=== PATIENT | female | born 1950 | race Caucasian/White ===

== ENCOUNTER → 2016-09-24 | Outpatient (CLI) | payer OTHER ==
[2016-08-26 22:05] VITALS: BP 142/55
[~2016-09-24] MED LIST: CALC300T5 PO; CEFP200T PO; CHOL500016 PO; CYAN10002 IJ; FENT1PAT15 TD; FENT1PAT17 TP; OSEL75CA PO; OXYC-323 PO; OXYC20TA34 PO
--- NOTE | 2016-09-24 13:35 | RAD ---
EXAM: Abdomen and pelvis CT without contrast. HISTORY: Flank pain. TECHNIQUE: Computed tomographic images of the abdomen and pelvis were obtained without contrast. One or more of the following individualized dose reduction techniques were utilized for this examination: 1. Automated exposure control. 2. Adjustment of the mA and/or kV according to patient size. 3. Use of iterative reconstruction technique. COMPARISON: 08/19/2012. FINDINGS: Evaluation of the lower thorax demonstrates groundglass opacities within the right lower lobe and inferior right middle lobe. There is a calcified granuloma within the left lower lobe. No hepatic lesion is seen. The gallbladder is unremarkable. There is a tiny proximal duodenal diverticulum. The spleen is upper normal in size. The adrenal glands are unremarkable. There is no evidence of nephrolithiasis or obstructive uropathy. There is faint increased density within the upper pole of the right kidney, not within limits to suggest nephrocalcinosis. Evaluation of the distal right ureter is limited due to artifact from a right hip arthroplasty. There are several bilateral renal cysts, the largest of which measures 3.8 cm within the right lower pole. The appendix is normal in appearance. There is moderate colonic stool. There is mild mucosal thickening involving loops of small bowel within the left upper and mid abdomen, likely due to peristalsis. No pathologically enlarged lymph node is seen. There is aortic and aortic branch vessel atherosclerosis. The uterus is surgically absent. There is no suspicious osseous lesion. There is a chronic superior endplate depression with Schmorl's node and T12. IMPRESSION: 1. No evidence of obstructive uropathy or nephrolithiasis. 2. Groundglass opacities within the right lower lobe and inferior right middle lobe, possibly due to atelectasis or pneumonia/pneumonitis. 3. Multiple renal cysts.
== END | disposition home or self-care (01) ==
LOC: CT 12:23
PROVIDERS: ATTEND Nurse Practitioner Family
DX: R10.31 Right lower quadrant pain (principal); R31.9 Hematuria, unspecified; N28.1 Cyst of kidney, acquired
CPT/HCPCS: 74176

== ENCOUNTER → 2016-10-14 | Outpatient (CLI) | payer OTHER ==
[2016-08-26 22:05] VITALS: BP 142/55
[2016-10-14 11:21] LABS: BASO % 0 % (0-3); EOS % 0 % (0-3); HEMATOCRIT 43.9 % (36.0-47.0); HEMOGLOBIN 14.7 g/dL (12.0-15.5); LYMPH # 1.3 x10^3/uL (1.0-4.8); LYMPH % 22 % (24-48); MEAN CORPUSCULAR HEMOGLOBIN 31 pg (25-35); MEAN CORPUSCULAR HGB CONC 33 g/dL (31-37); MEAN CORPUSCULAR VOLUME 94 fL (79-100); MONO # 0.5 x10^3/uL (0.0-1.1); MONO % 8 % (0-9); NEUT % 70 % (31-73); PLATELET COUNT 164 x10^3/uL (140-400); RED CELL DISTRIBUTION WIDTH 14.3 % (11.5-14.5); WHITE BLOOD COUNT 5.7 x10^3/uL (4.0-11.0)
[2016-10-14 11:26] LABS: CALCIUM 8.5 mg/dL (8.5-10.1); GFR 55.3; POTASSIUM 3.8 mmol/L (3.5-5.1)
[2016-10-14 11:37] LABS: BILIRUBIN,URINE NEG (NEG); CLARITY,URINE CLEAR; COLOR,URINE YELLOW; GLUCOSE,URINE NEG (NEG)
[2016-10-14 11:38] LABS: BACTERIA,URINE 0 /HPF (0-FEW); HYALINE CASTS, URINE OCC /HPF; NITRITE,URINE NEG (NEG); RBC,URINE RARE /HPF (0-2); SQUAMOUS EPITHELIAL CELL,UR FEW /LPF; UROBILINOGEN,URINE 0.2 mg/dL (0.2 mg/dL); WBC,URINE RARE /HPF (0-4)
== END | disposition home or self-care (01) ==
LOC: LAB 09:48
PROVIDERS: ATTEND Urology
DX: R10.9 Unspecified abdominal pain (principal)
CPT/HCPCS: 36415; 80048; 81001; 85027

== ENCOUNTER → 2017-05-27 | Day surgery (SDC) | payer OTHER ==
[2016-08-26 22:05] VITALS: BP 142/55
[~2017-05-27] MED LIST changes: +IV RINGERS SOLUTION,LACTATED 1,000 ML IV ONE; +LIDOCAINE 2% PF Vial for OR 5 ML VIAL. ONE; +PROPOFOL 40 ML IV ONE
== END | disposition home or self-care (01) ==
LOC: SURG 09:50
PROVIDERS: ATTEND Internal Medicine Gastroenterology
DX: Z09 Encounter for follow-up examination after completed treatment for conditions other than malignant neoplasm (principal); Z87.19 Personal history of other diseases of the digestive system; D12.0 Benign neoplasm of cecum; Z87.442 Personal history of urinary calculi; Z87.01 Personal history of pneumonia (recurrent); Z90.710 Acquired absence of both cervix and uterus; Z90.49 Acquired absence of other specified parts of digestive tract; Z88.6 Allergy status to analgesic agent; Z88.2 Allergy status to sulfonamides
CPT/HCPCS: 45385; J2704; J7120; 45380; J2001

== ENCOUNTER 2017-11-30 23:55 | Emergency (ER) | payer OTHER ==
[~2017-11-30] VITALS: Ht 165.1 cm; Wt 60.8 kg
[~2017-11-30 23:55] MED LIST changes: -IV RINGERS SOLUTION,LACTATED 1,000 ML IV ONE; -LIDOCAINE 2% PF Vial for OR 5 ML VIAL. ONE; -PROPOFOL 40 ML IV ONE
--- NOTE | 2017-12-01 00:05 | ED.ADGEN ---
Past History Past Medical History: Hypertension Past Surgical History: Other Alcohol Use: None Drug Use: None Adult General Chief Complaint Chief Complaint ".. I ve got a really sore Lt. ear... I took some my Amoxicillin... for my dental work... it helped a couple weeks ago.. but the pain is really bad..." HPI HPI Patient is a 67 year old female who presents with Lt ear ache. Pt. took some of here Amoxicillin for dental procedures. Patient denies any trauma or exposure to water and left ear. Patient does have external otitis as well as fluid behind the TM and TM injection. Patient denies any immunosuppression. No history of travel or specific ill contacts. Patient does report she develops yeast after taking amoxicillin. Pt. follows with Dr. Ferguson Review of Systems Review of Systems Constitutional: Denies fever or chills [] Eyes: Denies change in visual acuity, redness, or eye pain [] HENT: Denies nasal congestion or sore throat []complaints of left ear pain Respiratory: Denies cough or shortness of breath [] Cardiovascular: No additional information not addressed in HPI [] GI: Denies abdominal pain, nausea, vomiting, bloody stools or diarrhea [] : Denies dysuria or hematuria [] Musculoskeletal: Denies back pain or joint pain [] Integument: Denies rash or skin lesions [] Neurologic: Denies headache, focal weakness or sensory changes [] Endocrine: Denies polyuria or polydipsia [] All other systems were reviewed and found to be within normal limits, except as documented in this note. Family History Family History Noncontributory Current Medications Current Medications Current Medications Medications (Trade) Dose Ordered Sig/Be Start Time Stop Time Status Last Admin Dose Admin Acetaminophen (Tylenol) 500 mg STK-MED ONCE 12/01/17 01:11 12/01/17 01:31 DC Cephalexin HCl (Keflex) 250 mg STK-MED ONCE 12/01/17 01:10 12/01/17 01:31 DC Neomycin/ Polymyxin/ Hydrocortisone (Cortisporin Otic) 100 drop STK-MED ONCE 12/01/17 01:11 12/01/17 01:31 DC See nursing for home meds Allergies Allergies Allergies Coded Allergies Type Severity Reaction Last Updated Verified No Known Drug Allergies 02/28/14 No Physical Exam Physical Exam Constitutional: Moderately acute distress, non-toxic appearance. [] HENT: Normocephalic, atraumatic, right external ears normal, oropharynx moist, no oral exudates, nose normal. []Left ear canal injected as well as the TM Eyes: PERRLA, EOMI, conjunctiva normal, no discharge. [] Neck: Normal range of motion, no tenderness, supple, no stridor. [] Cardiovascular:Heart rate regular rhythm, no murmur [] Lungs & Thorax: Bilateral breath sounds equal at apexes on auscultation [] Abdomen: Bowel sounds normal, soft, no tenderness, no masses, no pulsatile masses. [] Skin: Warm, dry, no erythema, no rash. [] Back: No tenderness, no CVA tenderness. [] Extremities: No tenderness, no cyanosis, no clubbing, ROM intact, no edema. [] Right hip, Neurologic: Alert and oriented X 3, normal motor function, normal sensory function, no focal deficits noted. [] Psychologic: Affect anxious, judgement normal, mood normal. [] EKG EKG [] Radiology/Procedures Radiology/Procedures [] Course & Med Decision Making Course & Med Decision Making Pertinent Labs and Imaging studies reviewed. (See chart for details). Take Keflex 500 three times a day x 7 days. Use Cortisporin ear qtts in Lt ear 4 x day. Follow up with Dr. Ferguson. Diflucan 100 x 3 after complete the antibiotic. Tylenol and Ibuprofen for pain. Return if any concerns. Avoid water in Lt ear. [] Final Impression Final Impression 1. Otitis Lt. []Media and External Dragon Disclaimer Dragon Disclaimer This electronic medical record was generated, in whole or in part, using a voice recognition dictation system. KAVON YUSUF MD Dec 01, 2017 00:05
[2017-12-01 00:15] VITALS: BP 143/78
[2017-12-01] MEDS ORDERED: NEOMYCIN/POLYMYXIN/HC OTIC SUSPENSION 10ML BOTTLE. AS STA (00:55)
[2017-12-01] MEDS ORDERED: CEPHALEXIN 250 MG CAPSULE PO ONE (01:00)
[2017-12-01] MEDS ORDERED: ACETAMINOPHEN 500 MG TABLET PO ONE ×2 (01:00→01:11)
[2017-12-01] MEDS ORDERED: CEPH-264 PO (01:01)
[2017-12-01] MEDS ORDERED: HYDR-79 PO (01:01)
[2017-12-01] MEDS ORDERED: CEPHALEXIN 250 MG CAPSULE ONE (01:10)
[2017-12-01] MEDS ORDERED: NEOMYCIN/POLYMYXIN/HC OTIC SUSPENSION 10ML BOTTLE. ONE (01:11)
[2017-12-01] MEDS ORDERED: FLUC100T7 PO (01:23)
== END 2017-12-01 01:25 | disposition home or self-care (01) ==
LOC: ER 23:55
DX: H66.92 Otitis media, unspecified, left ear (principal); H60.92 Unspecified otitis externa, left ear; I10 Essential (primary) hypertension
CPT/HCPCS: 99284

== ENCOUNTER 2017-12-20 18:45 | Emergency (ER) | payer OTHER ==
[~2017-12-20] VITALS: Ht 165.1 cm; Wt 60.8 kg
[~2017-12-20 18:45] MED LIST changes: +CEPH-264 PO; +FLUC100T7 PO; +HYDR-79 PO
--- NOTE | 2017-12-20 19:42 | ED.ADGEN ---
Past History Past Medical History: No Pertinent History, Other Past Surgical History: Hip Replacement, TURP Alcohol Use: None Drug Use: None Adult General Chief Complaint Chief Complaint ".. I got a flare of my chronic back pain.. I have not been able to get my DrAna .. Dr Bermudez to call me back..." HPI HPI Patient is a 67 year old female who presents with above hx and complaints of back pain. Patient normally follows with Dr. Ferguson and Dr. Aidan guthrie. Patient advised she has exacerbations with weather changes. Pt. denies any injury. Patient denies any history of fever and chills. Patient has chronic back pain from previous injury at [employer]. Patient denies any problems with defecation or urination. She has been using a home meds as instructed. Patient has follow-up appointment with Dr. Bermudez. Patient requesting additional pain meds to get over this acute exacerbation. Patient is ambulatory. Review of Systems Review of Systems Constitutional: Denies fever or chills [] Eyes: Denies change in visual acuity, redness, or eye pain [] HENT: Denies nasal congestion or sore throat [] Respiratory: Denies cough or shortness of breath [] Cardiovascular: No additional information not addressed in HPI [] GI: Denies abdominal pain, nausea, vomiting, bloody stools or diarrhea [] : Denies dysuria or hematuria [] Musculoskeletal: Complaints of acute on chronic back pain Integument: Denies rash or skin lesions [] Neurologic: Denies headache, focal weakness or sensory changes [] Endocrine: Denies polyuria or polydipsia [] All other systems were reviewed and found to be within normal limits, except as documented in this note. Family History Family History Noncontributory Current Medications Current Medications Current Medications Medications (Trade) Dose Ordered Sig/Be Start Time Stop Time Status Last Admin Dose Admin Ketorolac Tromethamine (Toradol) 30 mg 1X ONCE 12/20/17 20:15 12/20/17 20:19 DC 12/20/17 20:28 30 MG Morphine Sulfate (Morphine 10mg Syringe) 10 mg 1X ONCE 12/20/17 20:15 12/20/17 20:19 DC 12/20/17 20:34 10 MG Orphenadrine Citrate (Norflex) 60 mg 1X ONCE 12/20/17 20:15 12/20/17 20:19 DC Allergies Allergies Allergies Coded Allergies Type Severity Reaction Last Updated Verified No Known Drug Allergies 02/28/14 No Physical Exam Physical Exam Constitutional: Moderately acute distress, non-toxic appearance. [] HENT: Normocephalic, atraumatic, bilateral external ears normal, oropharynx moist, no oral exudates, nose normal. [] Eyes: PERRLA, EOMI, conjunctiva normal, no discharge. [] Neck: Normal range of motion, no tenderness, supple, no stridor. [] Cardiovascular:Heart rate regular rhythm, no murmur [] Lungs & Thorax: Bilateral breath sounds equal at apexes with auscultation [] Abdomen: Bowel sounds normal, soft, no tenderness, no masses, no pulsatile masses. [] Skin: Warm, dry, no erythema, no rash. [] Back: Lumbar and sacral tenderness, no CVA tenderness. [] Muscle spasms. Extremities: No tenderness, no cyanosis, no clubbing, ROM intact, no edema. [] Neurologic: Alert and oriented X 3, normal motor function, normal sensory function, no focal deficits noted. []DTRs are +2 at patella and Achilles tendon. Psychologic: Affect anxious, judgement normal, mood normal. [] Current Patient Data Vital Signs Vital Signs Date Time Temp Pulse Resp B/P (MAP) Pulse Ox O2 Delivery O2 Flow Rate FiO2 12/20/17 20:45 74 16 143/66 (91) 98 Room Air 12/20/17 19:09 98.1 EKG EKG [] Radiology/Procedures Radiology/Procedures Defers radiographic evaluation at this time.[] Course & Med Decision Making Course & Med Decision Making Pertinent Labs and Imaging studies reviewed. (See chart for details). Patient to keep follow up. Patient take home meds as directed. Patient return of any concerns. Patient encouraged follow-up with Dr. Ferguson as well as [] Final Impression Final Impression 1. Back pain[] acute on chronic Dragon Disclaimer Dragon Disclaimer This electronic medical record was generated, in whole or in part, using a voice recognition dictation system. KAVON YUSUF MD Dec 20, 2017 19:42
[2017-12-20] MEDS ORDERED: KETOROLAC 30 MG/ML VIAL. IV ONE (20:15)
[2017-12-20] MEDS ORDERED: MORPHINE SULFATE 10 MG/ML SYRINGE. SQ ONE (20:15)
[2017-12-20] MEDS ORDERED: ORPHENADRINE CITRATE 60 MG/2 ML VIAL. IM ONE ×2 (20:15)
[2017-12-20] MEDS ORDERED: CYCL5TAB PO (20:23)
[2017-12-20] MEDS ORDERED: HYDR-79 PO (20:23)
[2017-12-20 20:45] VITALS: BP 143/66
== END 2017-12-20 20:45 | disposition home or self-care (01) ==
LOC: ER 18:45
DX: G89.29 Other chronic pain (principal); M54.5 Low back pain
CPT/HCPCS: 96372; 96374; 99284; J1885; J2270; J2360

== ENCOUNTER → 2018-11-08 | Outpatient (CLI) | payer OTHER ==
[~2018-11-08] MED LIST changes: +CYCL5TAB PO; +HYDR-1179 PO; -HYDR-79 PO; -OXYC-323 PO; +OXYC1TAB15 PO; -OXYC20TA34 PO; +OXYC20TA35 PO
--- NOTE | 2018-11-08 10:45 | RAD ---
DATE: 11/08/2018 EXAM: MAMMO ENZO SCREENING BILATERAL HISTORY: Routine screening COMPARISON: 08/15/2013 and 07/11/2012 mammographic exams This study was interpreted with the benefit of Computerized Aided Detection (CAD). Breast Density: HETERO The breast parenchyma is heterogenously dense, which could reduce sensitivity of mammography. Breast parenchyma level C. FINDINGS: Benign calcification is present. No new masses or distortion. IMPRESSION: No suspicious process. BI-RADS CATEGORY: 1 NEGATIVE RECOMMENDED FOLLOW-UP: 12M 12 MONTH FOLLOW-UP PQRS compliance statement: Patient information was entered into a reminder system with a target due date in one year for the next mammogram. Mammography is a sensitive method for finding small breast cancers, but it does not detect them all and is not a substitute for careful clinical examination. A negative mammogram does not negate a clinically suspicious finding and should not result in delay in biopsying a clinically suspicious abnormality. "Our facility is accredited by the [employer] Mammography Program."
== END | disposition home or self-care (01) ==
LOC: MAMMO 09:42
PROVIDERS: ATTEND Family Medicine
DX: Z12.31 Encounter for screening mammogram for malignant neoplasm of breast (principal); N64.89 Other specified disorders of breast
CPT/HCPCS: 77063; 77067

== ENCOUNTER → 2019-12-06 | Outpatient (CLI) | payer MEDICARE ==
--- NOTE | 2019-12-06 10:14 | RAD ---
EXAM: CT left wrist without IV contrast INDICATION: Reason: LEFT WRIST PAIN, NO INJURY, KNOT ON LATERAL ASPECT OF WRIST / Spl. Instructions: / History: TECHNIQUE: Helical noncontrast CT of the left wrist was performed at 2 mm slice thickness and reviewed in multiplanar reformats. All CT scans performed at this facility utilize dose optimization techniques as appropriate to the exam, including the following: Automated exposure control and adjustment of the mA and/or KV according to patient size (this includes techniques or standardized protocols for targeted exams where dose is indication/reason for exam). IV CONTRAST: Not administered COMPARISON: None FINDINGS: Alignment shows minimal dorsal subluxation of the ulna at the distal radioulnar joint but otherwise appear unremarkable. Bones are well-mineralized and show no erosions, fracture or aggressive appearing osseous lesions. Soft tissues reveal there is some focal thickening at the distal aspect of the extensor carpi ulnaris tendon just beyond the ulna solid process, best illustrated on axial images 27 and 28 of series 3. The area of palpable concern is not marked for correlation. No radiopaque foreign body or abnormal soft tissue gas is identified. 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 Electronically signed by: Bryon Story MD (12/06/2019 10:11 AM) [id number]
== END | disposition home or self-care (01) ==
LOC: CT 08:35
PROVIDERS: ATTEND Family Medicine
DX: S63.072A Subluxation of distal end of left ulna, initial encounter (principal); X58.XXXA Exposure to other specified factors, initial encounter; Y93.89 Activity, other specified; Y92.89 Other specified places as the place of occurrence of the external cause; Y99.8 Other external cause status
CPT/HCPCS: 73200

== ENCOUNTER → 2020-01-03 | Outpatient (CLI) | payer MEDICARE ==
[2020-01-03 11:06] LABS: BASO % 0 % (0-3); EOS % 0 % (0-3); HEMATOCRIT 44.7 % (36.0-47.0); HEMOGLOBIN 15.2 g/dL (12.0-15.5); LYMPH % 18 % (24-48); MEAN CORPUSCULAR HEMOGLOBIN 32 pg (25-35); MEAN CORPUSCULAR HGB CONC 34 g/dL (31-37); MEAN CORPUSCULAR VOLUME 94 fL (79-100); MONO # 0.4 x10^3/uL (0.0-1.1); MONO % 7 % (0-9); NEUT # 4.2 x10^3uL (1.8-7.7); NEUT % 75 % (31-73); PLATELET COUNT 168 x10^3/uL (140-400); RED BLOOD COUNT 4.74 x10^6/uL (3.50-5.40); RED CELL DISTRIBUTION WIDTH 14.2 % (11.5-14.5); WHITE BLOOD COUNT 5.6 x10^3/uL (4.0-11.0)
[2020-01-03 11:14] LABS: ALBUMIN 3.7 g/dL (3.4-5.0); ALBUMIN/GLOBULIN RATIO 1.1 (1.0-1.7); CALCIUM 9.3 mg/dL (8.5-10.1); CREATININE 1.2 mg/dL (0.6-1.0); GFR 44.4; POTASSIUM 4.3 mmol/L (3.5-5.1); TOTAL BILIRUBIN 0.5 mg/dL (0.2-1.0)
[2020-01-03 11:45] LABS: BILIRUBIN,URINE NEG (NEG); CLARITY,URINE CLEAR; COLOR,URINE YELLOW; GLUCOSE,URINE NEG (NEG); NITRITE,URINE NEG (NEG)
[2020-01-03 11:46] LABS: BACTERIA,URINE FEW /HPF (0-FEW); SQUAMOUS EPITHELIAL CELL,UR FEW /LPF
[2020-01-03 14:12] LABS: FREE T4 1.08 ng/dL (0.76-1.46)
[2020-01-03 14:13] LABS: THYROID STIM HORMONE (TSH) 1.506 uIU/mL (0.358-3.740)
== END ==
LOC: LAB 10:00
PROVIDERS: ATTEND Family Medicine
DX: R63.4 Abnormal weight loss (principal); I10 Essential (primary) hypertension
CPT/HCPCS: 36415; 80053; 80061; 81001; 82607; 84439; 84443; 85025

== ENCOUNTER 2020-02-15 15:10 | Emergency (ER) | payer MEDICARE ==
[~2020-02-15] VITALS: Ht 165.1 cm; Wt 56.5 kg
--- NOTE | 2020-02-15 15:17 | PHYS DOC ---
Past History Past Medical History: No Pertinent History, Other Past Surgical History: Hip Replacement, TURP Alcohol Use: None Drug Use: None General Adult EDM: Chief Complaint: CHEST PAIN HPI: HPI: Patient is a 69 year old white female who presents with ~24 history of chest pain. Patient reports slowly worsening chest pain starting at a 2 out of 10 and progressing. Her pain is worse with inspiration which she mcleod is a 8 out of 10. She characterizes her pain as a sharp stabbing in nature it radiates to her left neck. Patient is unsure if the pain radiates to her left arm due to prior injury of her left thumb, sustained 4 months ago, with recent steroid injection 2 weeks ago. She reports 1 episode of nausea and vomiting following her morning coffee, this episode was associated with dizziness. Patient denies any shortness of breath, lower extremity edema or swelling. Review of Systems: Review of Systems: Constitutional: Denies fever or chills Eyes: Denies redness or eye pain HENT: Denies nasal congestion or sore throat Respiratory: Denies cough or shortness of breath Cardiovascular: Denies chest pain or palpitations. GI: Denies abdominal pain, nausea, or vomiting : Denies dysuria or hematuria Musculoskeletal: Denies back pain or joint pain Integument: Denies rash or skin lesions Neurologic: Denies headache, focal weakness or sensory changes Complete systems were reviewed and found to be within normal limits, except as documented in this note. Heart Score: Risk Factors: Risk Factors: DM, Current or recent (<one month) smoker, HTN, HLP, family history of CAD, obesity. Risk Scores: Score 0 - 3: 2.5% MACE over next 6 weeks - Discharge Home Score 4 - 6: 20.3% MACE over next 6 weeks - Admit for Clinical Observation Score 7 - 10: 72.7% MACE over next 6 weeks - Early Invasive Strategies Current Medications: Current Meds: -Meloxicam as needed. -50 mg fentanyl patch every 4 months. -Prolia subcu injectable -Metoprolol 25 mg given @ 2:34. -4 doses sublingual nitroglycerin. Allergies: Allergies: Allergies Coded Allergies Type Severity Reaction Last Updated Verified No Known Drug Allergies 02/28/14 No Physical Exam: PE: Constitutional: Well developed, well nourished, no acute distress, non-toxic appearance HENT: Normocephalic, atraumatic. Cranial nerves II through XII grossly intact bilaterally. Eyes: PERRL, EOMI, conjunctiva normal, no discharge Neck: Normal range of motion, no tenderness, supple. Approximately 5cm jugular venous distention. Lungs & Thorax: Bilateral breath sounds clear to auscultation, no wheezing. Exam limited due to pleuritic chest pain. Patient's costochondral joints are tender to palpation. Heart: Regular rate and rhythm no murmurs, S1 and S2 present, S3-S4 absent. Distant heart sounds. Abdomen: Soft, no tenderness. Negative rebound heel strike. Bowel sounds present all 4 quadrants. Skin: Warm, dry, no erythema, no rash Back: No tenderness, no CVA tenderness Extremities: No tenderness, ROM intact, no edema. +2/4 dorsalis pedis and posterior tibial pulse. Both lower extremities are approximately same size. Neurologic: Alert and oriented X 3, normal motor function, normal sensory function, no focal deficits noted Psychologic: Affect normal, judgment normal Vitals: Temp 98.8 Fahrenheit, O2 sat: 95%, BP: 125/70 EKG: EKG: [] EK:20 02/15/2020 Impression: Low votage QRS, Sinus Tachcardia @ [address] elevation or conduction abnormalities. Radiology/Procedures: Radiology/Procedures: PROCEDURE: CT ANGIOGRAPHY CHEST EXAM: CT Pulmonary Angiogram INDICATION: Reason: pleuritic chest pain / Spl. Instructions: / History: TECHNIQUE: Multi-detector row images were acquired from the thoracic inlet through the upper abdomen with the use of IV contrast. Sagittal and coronal images were acquired from the transaxial data. MIP images of the pulmonary arteries were obtained. All CT scans performed at this facility utilize dose optimization techniques as appropriate to the exam, including the following: Automated exposure control and adjustment of the mA and/or KV according to patient size (this includes techniques or standardized protocols for targeted exams where dose is indication/reason for exam). IV CONTRAST: Administered COMPARISON: None FINDINGS: PULMONARY ARTERIES: No pulmonary emboli are identified. CARDIOVASCULAR: Unremarkable Aorta is normal caliber. MEDIASTINUM & ROBERTO: Some frothy tissue is present in the mid to distal trachea. LUNGS: Centrilobular emphysema and mild bibasilar reticular densities with pericardial thickening most conspicuous in the right lower lobe. PLEURAL SPACE: No pleural effusions or pneumothorax. OSSEOUS & SOFT TISSUE: Right humeral fixation screws are partially imaged. No acute or aggressive osseous lesions otherwise noted. ABDOMEN: The visualized portions of the upper abdomen show thickening of the gastric wall greater than anticipated for the degree of distention. This is nonspecific but clinical correlation and follow-up could be beneficial. The spleen also appears mildly enlarged but only partially imaged, measuring 12 cm AP by 8 cm mediolateral.. IMPRESSION: 1. No pulmonary emboli. 2. Centrilobular emphysema with findings of possible aspiration pneumonitis with residual secretions in the trachea. 3. Apparent gastric wall thickening and splenomegaly. Consider further imaging evaluation on an elective, nonemergent basis. Electronically signed by: Bryon Story MD (02/15/2020 5:22 PM) [facility] Course & Med Decision Making: Course & Med Decision Making Pertinent Labs and Imaging studies reviewed. (See chart for details) [] 69-year-old white female with 1day history of chest pain. EKG largely unremarkable aside from very mild sinus tachycardia at 101 bpm. Patient is unlikely to represent an acute VA. Most likely costochondritis versus pleural effusion. Dragon Disclaimer: [employer] Disclaimer: This electronic medical record was generated, in whole or in part, using a voice recognition dictation system. Departure Departure: Impression: Primary Impression: Pleuritic chest pain Additional Impression: Nausea & vomiting Qualified Codes: R11.2 - Nausea with vomiting, unspecified Disposition: 01 HOME/RESIDENCE PRIOR TO ADM Condition: STABLE Referrals: KELLIE LOYA MD (PCP) JOSE GONZALEZ MD Patient Instructions: Chest Pain (Nonspecific), [id number], Esophagitis, Nausea and Vomiting, [id number] Scripts Ondansetron (ONDANSETRON ODT) 4 Mg Tab.rapdis 1 TAB PO PRN Q6-8HRS PRN for NAUSEA, #16 TAB Prov: ESME PERAZA DO 02/15/20 Famotidine (PEPCID) 20 Mg Tablet 1 TAB PO BID for gastritis, #20 TAB Prov: ESME PERAZA DO 02/15/20 Justification of Admission: Justification of Admission: Justification of Admission Dx: N/A ESME PERAZA DO Feb 15, 2020 15:17
[2020-02-15] MEDS ORDERED: IOHEXOL 350 MG/ML 100 ML VIAL. IV ONE (15:30)
[2020-02-15] MEDS ORDERED: FAMOTIDINE 20 MG/2 ML VIAL IVP ONE (15:30)
[2020-02-15] MEDS ORDERED: IV NORMAL SALINE 1,000ML 1,000 ML IV ONE (15:30)
[2020-02-15] MEDS ORDERED: ONDANSETRON PF 4 MG/2 ML VIAL. IVP ONE (15:30)
--- NOTE | 2020-02-15 15:37 | EKG ---
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
[2020-02-15 16:02] LABS: ANION GAP 10 (6-14); BLOOD UREA NITROGEN 13 mg/dL (7-20); BUN/CREATININE RATIO 16 (6-20); CALCIUM 8.5 mg/dL (8.5-10.1); CARBON DIOXIDE 24 mmol/L (21-32); CHLORIDE 104 mmol/L (98-107); CREATININE 0.8 mg/dL (0.6-1.0); GFR 70.9; GLUCOSE 164 mg/dL (70-99); POTASSIUM 4.6 mmol/L (3.5-5.1); SODIUM 138 mmol/L (136-145)
[2020-02-15 16:04] LABS: BASO # 0.1 x10^3/uL (0.0-0.2); BASO % 1 % (0-3); EOS % 0 % (0-3); HEMATOCRIT 45.2 % (36.0-47.0); HEMOGLOBIN 15.4 g/dL (12.0-15.5); LYMPH # 0.7 x10^3/uL (1.0-4.8); LYMPH % 7 % (24-48); MEAN CORPUSCULAR HEMOGLOBIN 32 pg (25-35); MEAN CORPUSCULAR HGB CONC 34 g/dL (31-37); MEAN CORPUSCULAR VOLUME 94 fL (79-100); MONO # 0.8 x10^3/uL (0.0-1.1); MONO % 8 % (0-9); NEUT # 8.4 x10^3uL (1.8-7.7); NEUT % 85 % (31-73); PLATELET COUNT 195 x10^3/uL (140-400); RED BLOOD COUNT 4.79 x10^6/uL (3.50-5.40); RED CELL DISTRIBUTION WIDTH 14.6 % (11.5-14.5); WHITE BLOOD COUNT 9.9 x10^3/uL (4.0-11.0)
[2020-02-15 16:19] LABS: ALBUMIN 3.5 g/dL (3.4-5.0); ALBUMIN/GLOBULIN RATIO 1.1 (1.0-1.7); ALK PHOS 67 U/L (46-116); ALT (SGPT) 12 U/L (14-59); AST (SGOT) 15 U/L (15-37); LIPASE 67 U/L (73-393); TOTAL BILIRUBIN 0.7 mg/dL (0.2-1.0); TOTAL PROTEIN 6.6 g/dL (6.4-8.2)
--- NOTE | 2020-02-15 17:25 | RAD ---
EXAM: CT Pulmonary Angiogram INDICATION: Reason: pleuritic chest pain / Spl. Instructions: / History: TECHNIQUE: Multi-detector row images were acquired from the thoracic inlet through the upper abdomen with the use of IV contrast. Sagittal and coronal images were acquired from the transaxial data. MIP images of the pulmonary arteries were obtained. All CT scans performed at this facility utilize dose optimization techniques as appropriate to the exam, including the following: Automated exposure control and adjustment of the mA and/or KV according to patient size (this includes techniques or standardized protocols for targeted exams where dose is indication/reason for exam). IV CONTRAST: Administered COMPARISON: None FINDINGS: PULMONARY ARTERIES: No pulmonary emboli are identified. CARDIOVASCULAR: Unremarkable Aorta is normal caliber. MEDIASTINUM & ROBERTO: Some frothy tissue is present in the mid to distal trachea. LUNGS: Centrilobular emphysema and mild bibasilar reticular densities with pericardial thickening most conspicuous in the right lower lobe. PLEURAL SPACE: No pleural effusions or pneumothorax. OSSEOUS & SOFT TISSUE: Right humeral fixation screws are partially imaged. No acute or aggressive osseous lesions otherwise noted. ABDOMEN: The visualized portions of the upper abdomen show thickening of the gastric wall greater than anticipated for the degree of distention. This is nonspecific but clinical correlation and follow-up could be beneficial. The spleen also appears mildly enlarged but only partially imaged, measuring 12 cm AP by 8 cm mediolateral.. IMPRESSION: 1. No pulmonary emboli. 2. Centrilobular emphysema with findings of possible aspiration pneumonitis with residual secretions in the trachea. 3. Apparent gastric wall thickening and splenomegaly. Consider further imaging evaluation on an elective, nonemergent basis. Electronically signed by: Bryon Story MD (02/15/2020 5:22 PM) [facility] [place]
[2020-02-15 18:07] LABS: BILIRUBIN,URINE NEG (NEG); CLARITY,URINE CLEAR; COLOR,URINE YELLOW; GLUCOSE,URINE NEG (NEG)
[2020-02-15 18:08] LABS: BACTERIA,URINE 0 /HPF (0-FEW); NITRITE,URINE NEG (NEG); SQUAMOUS EPITHELIAL CELL,UR MOD /LPF; WBC,URINE OCC /HPF (0-4)
[2020-02-15] MEDS ORDERED: DEXAMETHASONE SOD PHOS 10 MG/ML VIAL. IV ONE (18:10)
[2020-02-15] MEDS ORDERED: ONDA4TAB12 PO (18:11)
[2020-02-15] MEDS ORDERED: FAMO-63 PO (18:11)
[2020-02-15 18:14] VITALS: BP 96/57
== END 2020-02-15 18:20 | disposition home or self-care (01) ==
LOC: ER 15:10
DX: R07.81 Pleurodynia (principal); R11.2 Nausea with vomiting, unspecified; R42 Dizziness and giddiness
CPT/HCPCS: 36415; 71275; 80053; 81001; 82553; 83690; 83735; 83880; 84484; 85025; 85610; 85730; 93005; 96361; 96374; 96375; 99285; J2405; J3490; J7030; Q9967

== ENCOUNTER 2020-05-07 11:13 | Observation (INO) | payer MEDICARE ==
[~2020-05-07] VITALS: Ht 167.6 cm; Wt 51.3 kg
[~2020-05-07 11:13] MED LIST changes: +FAMO-63 PO; +ONDA4TAB12 PO
[2020-05-07 11:39] VITALS: BP 129/77
--- NOTE | 2020-05-07 12:41 | NUR ---
NSG NOTE; ADMISSION DIRECT ADMIT TO ROOM 107 AT 1140 VIA W/C ACCOMP BY SELF. C/O DEPRESSION AND WEIGHT LOSS FROM LOSS OF IN OCTOBER 2019 C/O NAUSEA AND LACK OF APPETITE RESULTING IN WEIGHT LOSS
[2020-05-07] MEDS ORDERED: ONDANSETRON ODT 4 MG TAB.RAPDIS PO PRN (14:15)
[2020-05-07] MEDS ORDERED: HYDROcodone/APAP 5/325MG 1 TAB TABLET PO PRN (14:15)
[2020-05-07] MEDS ORDERED: CYCLOBENZAPRINE 10 MG TABLET. PO PRN (14:30)
[2020-05-07] MEDS ORDERED: ALPR0.25 PO (14:46)
[2020-05-07] MEDS: IV 1/2 NORMAL SALINE 1,000 ML IV SCH ×2 (15:45→19:15)
[2020-05-07 15:50] VITALS: BP 111/65
[2020-05-07] MEDS ORDERED: FENT1PAT17 TP (16:04)
[2020-05-07] MEDS ORDERED: fentaNYL 50MCG/HR 1 PATCH PATCH TD SCH (16:15)
[2020-05-07 16:16] LABS: BASO % 0 % (0-3); EOS % 0 % (0-3); HEMATOCRIT 43.6 % (36.0-47.0); HEMOGLOBIN 14.9 g/dL (12.0-15.5); LYMPH # 0.8 x10^3/uL (1.0-4.8); LYMPH % 17 % (24-48); MEAN CORPUSCULAR HEMOGLOBIN 32 pg (25-35); MEAN CORPUSCULAR HGB CONC 34 g/dL (31-37); MEAN CORPUSCULAR VOLUME 95 fL (79-100); MONO # 0.4 x10^3/uL (0.0-1.1); MONO % 8 % (0-9); NEUT # 3.4 x10^3uL (1.8-7.7); NEUT % 75 % (31-73); PLATELET COUNT 180 x10^3/uL (140-400); RED BLOOD COUNT 4.59 x10^6/uL (3.50-5.40); RED CELL DISTRIBUTION WIDTH 14.1 % (11.5-14.5); WHITE BLOOD COUNT 4.6 x10^3/uL (4.0-11.0)
[2020-05-07 16:31] LABS: ALBUMIN 3.5 g/dL (3.4-5.0); ALBUMIN/GLOBULIN RATIO 1.1 (1.0-1.7); CALCIUM 8.9 mg/dL (8.5-10.1); GFR 54.8; TOTAL BILIRUBIN 0.2 mg/dL (0.2-1.0); TOTAL PROTEIN 6.7 g/dL (6.4-8.2)
--- NOTE | 2020-05-07 16:50 | RAD ---
Chest radiograph 05/07/2020 2:09 PM INDICATION: Shortness of air COMPARISON: 08/26/2016 TECHNIQUE: Frontal and lateral views of the chest are provided. FINDINGS: The cardiomediastinal silhouette is within normal limits. There are no pleural effusions. There is no pulmonary vascular congestion. There is no pneumothorax. Severe pulmonary emphysematous changes are noted. No new airspace consolidation. Fine interstitial changes at the lung bases are stable. No significant osseous abnormality is identified. IMPRESSION: COPD changes without acute cardiopulmonary process. Electronically signed by: Fatimah Bermeo MD (05/07/2020 4:47 PM) [facility]
--- NOTE | 2020-05-07 16:58 | EKG ---
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
--- NOTE | 2020-05-07 17:04 | RAD ---
Examination: CT of the abdomen pelvis without contrast History: history of abdominal pain COMPARISON: 09/24/2016 TECHNIQUE: Axial CT images of the abdomen pelvis were performed without contrast. Coronal and sagittal reformats are performed Exposure: One or more of the following individualized dose reduction techniques were utilized for this examination: 1. Automated exposure control 2. Adjustment of the mA and/or kV according to patient size 3. Use of iterative reconstruction technique FINDINGS: Partially visualized emphysematous changes identified in the bilateral lungs with reticular interstitial lung markings in the right lung base similar to prior exam. No evidence of free air identified in the abdomen. Examination is limited lack of oral and IV contrast . The visualized noncontrasted liver, spleen, adrenals grossly appears unremarkable. The stomach is mildly distended. The visualized pancreas grossly appears unremarkable. The small bowel is nondilated. Feces and gas noted in the colon. Cystic structures identified in the bilateral kidneys the largest measuring 4.5 cm likely cysts. Evaluation the pelvis limited the right hip arthroplasty changes. Moderate degenerative changes lumbar spine. IMPRESSION: 1. No acute intra-abdominal findings Electronically signed by: Ben Bui MD (05/07/2020 5:01 PM) [id number]
[2020-05-07 17:21] LABS: BILIRUBIN,URINE NEG (NEG); CLARITY,URINE CLEAR; COLOR,URINE AMBER; GLUCOSE,URINE NEG (NEG)
[2020-05-07 17:22] LABS: BACTERIA,URINE 0 /HPF (0-FEW); NITRITE,URINE NEG (NEG); SQUAMOUS EPITHELIAL CELL,UR MOD /LPF
[2020-05-07] MEDS ORDERED: ALPRAZolam 0.25 MG TABLET PO PRN (18:00)
[2020-05-07] MEDS ORDERED: CONTRAST GIVEN. MC PRN (18:00)
[2020-05-07] MEDS ORDERED: IOHEXOL 350 MG/ML 100 ML VIAL. IV ONE (18:15)
--- NOTE | 2020-05-07 19:34 | RAD ---
Exam: CT of chest with contrast INDICATION: Short of air TECHNIQUE: Sequential axial images through the chest obtained following the administration of 100 mL of Omni 350 IV contrast. Sagittal and coronal reformatted images were reconstructed from the axial data and reviewed. 3-D reformatted images were reconstructed from the axial data and reviewed. Comparisons: 02/15/2020 FINDINGS: Visualized portions of the thyroid are unremarkable. No enlarged mediastinal lymph nodes. Heart size is normal. No pericardial effusion. Thoracic aorta has normal course and caliber. Pulmonary artery is not enlarged. No pulmonary embolus identified within the main, lobar or segmental pulmonary arteries. Airways are patent. No consolidation or pneumothorax. No suspicious lung nodules identified. No pleural effusion or thickening. Visualized upper abdomen is unremarkable. No suspicious osseous lesions or acute fractures. IMPRESSION: No pulmonary embolus identified within the main, lobar or segmental pulmonary arteries. Exposure: One or more of the following in the visualized dose reduction techniques were utilized for this examination: 1. Automated exposure control 2. Adjustment of the MA and/or KV according to patient size 3. Use of iterative of reconstructive technique Electronically signed by: Patrick Sanders MD (05/07/2020 7:31 PM) [facility]
[2020-05-07 20:03] VITALS: BP 134/89
[2020-05-07] MEDS: MIRTAZAPINE 15 MG TABLET PO SCH (20:52)
[2020-05-07] MEDS ORDERED: FAMOTIDINE 20 MG TABLET PO SCH (21:00)
[2020-05-08] MEDS: IV 1/2 NORMAL SALINE 1,000 ML IV SCH ×5 (00:15→18:06)
[2020-05-08 00:18] VITALS: BP 121/82
[2020-05-08 05:47] VITALS: BP 89/54
[2020-05-08 07:05] LABS: BASO % 1 % (0-3); EOS % 0 % (0-3); HEMATOCRIT 42.1 % (36.0-47.0); HEMOGLOBIN 14.1 g/dL (12.0-15.5); LYMPH % 26 % (24-48); MEAN CORPUSCULAR HEMOGLOBIN 32 pg (25-35); MEAN CORPUSCULAR HGB CONC 34 g/dL (31-37); MEAN CORPUSCULAR VOLUME 96 fL (79-100); MONO # 0.4 x10^3/uL (0.0-1.1); MONO % 11 % (0-9); NEUT # 2.4 x10^3uL (1.8-7.7); NEUT % 62 % (31-73); PLATELET COUNT 156 x10^3/uL (140-400); RED BLOOD COUNT 4.39 x10^6/uL (3.50-5.40); WHITE BLOOD COUNT 3.9 x10^3/uL (4.0-11.0)
[2020-05-08 07:23] LABS: CALCIUM 8.3 mg/dL (8.5-10.1); CREATININE 0.9 mg/dL (0.6-1.0); GFR 61.9; POTASSIUM 3.8 mmol/L (3.5-5.1)
[2020-05-08] MEDS ORDERED: IV NORMAL SALINE 1,000ML 1,000 ML IV ONE (09:45)
[2020-05-08 10:40] LABS: FECAL OB PT NEGATIVE (NEG)
[2020-05-08 10:48] VITALS: BP 112/70
[2020-05-08 15:04] VITALS: BP 94/55
[2020-05-08 20:07] VITALS: BP 112/68
[2020-05-08] MEDS: MIRTAZAPINE 15 MG TABLET PO SCH (20:35)
[2020-05-09 05:57] VITALS: BP 96/62
[2020-05-09 06:49] LABS: BASO # 0.1 x10^3/uL (0.0-0.2); BASO % 2 % (0-3); EOS % 0 % (0-3); HEMATOCRIT 41.8 % (36.0-47.0); HEMOGLOBIN 13.9 g/dL (12.0-15.5); LYMPH # 0.7 x10^3/uL (1.0-4.8); LYMPH % 22 % (24-48); MEAN CORPUSCULAR HEMOGLOBIN 32 pg (25-35); MEAN CORPUSCULAR HGB CONC 33 g/dL (31-37); MEAN CORPUSCULAR VOLUME 95 fL (79-100); MONO # 0.3 x10^3/uL (0.0-1.1); MONO % 10 % (0-9); NEUT # 2.3 x10^3uL (1.8-7.7); NEUT % 67 % (31-73); PLATELET COUNT 144 x10^3/uL (140-400); RED BLOOD COUNT 4.41 x10^6/uL (3.50-5.40); RED CELL DISTRIBUTION WIDTH 14.1 % (11.5-14.5); WHITE BLOOD COUNT 3.4 x10^3/uL (4.0-11.0)
[2020-05-09 06:59] LABS: CALCIUM 7.6 mg/dL (8.5-10.1); CREATININE 0.8 mg/dL (0.6-1.0); GFR 70.9; POTASSIUM 3.9 mmol/L (3.5-5.1)
[2020-05-09] MEDS: IV 1/2 NORMAL SALINE 1,000 ML IV SCH (07:09)
[2020-05-09] MEDS ORDERED: MIRT15TA3 PO (09:04)
--- NOTE | 2020-05-09 09:40 | NUR ---
NURSING NOTE: DISCHARGE PT DISCHARGED VIA AMBULATION. WRITTEN AND VERBAL DISCHARGE INSTRUCTIONS GIVEN, VERBAL UNDERSTANDING RECEIVED. NO PAPER RX GIVEN. NO FURTHER QUESTIONS. PT CAR IN PARKING LOT. PT WALKED TO CAR. CYDNEY ALBERT
--- NOTE | 2020-05-09 12:51 | PN ---
DATE: SUBJECTIVE: A 69-year-old female came in with severe dehydration, abdominal discomfort. The patient had a positive D-dimer. V/Q scan was negative. The patient is resting fairly comfortably and much better hydrated. OBJECTIVE: VITAL SIGNS: Her blood pressure did drop down into approximately 89/54 and has come back up with boluses of fluid up to 112/68, respiratory rate 18, pulse 70, afebrile. GENERAL: The patient is alert and oriented. LUNGS: Diminished throughout, but basically clear. CARDIOVASCULAR: Stable. This is a very frail-appearing female. LABORATORY DATA: The patient's lab look basically stable. We will go ahead and continue to monitor the patient accordingly, make further evaluation on her as indicated, but otherwise severe dehydration, unintentional weight loss, hypotension. PLAN: Continue to monitor the patient accordingly, make adjustments on her medications. KELLIE LOYA MD DR: BEN/dirk JOB#: [id number] / [id number]
--- NOTE | 2020-05-09 13:34 | DS ---
DATE OF DISCHARGE: 05/09/2020 HOSPITAL COURSE: A 69-year-old female came in through the office. She was incredibly ill with nausea, vomiting, unintentional weight loss, unable to keep fluids down, hypotensive as well. The patient also was having some problems breathing. She was brought in for observation for further evaluation and treatment. Thorough workup. She was given massive amounts of fluids to rehydrate her and she made good progress with that situation there. In any case, the patient was given approximately 2 liters of fluid, adjusted on her electrolytes. The patient's potassium 3.4. Hemoglobin 13 and hematocrit 41. Chemistries, 140, 3.9; calcium 8.3. Liver enzymes were decreased. Blood sugar 104. The patient will be discharged home. Follow up as an outpatient. See MRAD. IMPRESSION: Dehydration, nausea, vomiting, emphysema, depression. PLAN: As above. KELLIE LOYA MD DR: BEN/dirk JOB#: [id number] / [id number]
[2020-05-10] MEDS ORDERED: fentaNYL 50MCG/HR 1 PATCH PATCH TD SCH (09:00)
== END 2020-05-09 09:56 | disposition home or self-care (01) ==
LOC: INTOOBSV 11:13 → 1 SOUTH 11:13
PROVIDERS: ADMIT Family Medicine; ATTEND Family Medicine
DX: E86.0 Dehydration (principal); R10.9 Unspecified abdominal pain; I95.9 Hypotension, unspecified; R63.4 Abnormal weight loss; J43.9 Emphysema, unspecified; F32.9 Major depressive disorder, single episode, unspecified; R11.2 Nausea with vomiting, unspecified; Z68.1 Body mass index [BMI] 19.9 or less, adult
CPT/HCPCS: 36415; 71046; 71275; 74176; 80048; 80053; 81001; 82274; 83690; 84134; 84443; 85025; 85379; 93005; 96360; 96361; G0378; G0379; J7030; Q9967

== ENCOUNTER → 2021-11-21 | Outpatient (CLI) | payer MEDICARE ==
[~2021-11-21] MED LIST changes: +ALPR0.25 PO; +MIRT-7 PO
--- NOTE | 2021-11-21 14:00 | RAD ---
BILATERAL DIGITAL SCREENING 2-D MAMMOGRAM INDICATION: Routine screening. COMPARISON: November 08, 2018 August 15, 2013 Interpretation was made using CAD. FINDINGS: Breast Density: The breasts are heterogeneously dense, which may obscure small masses.n RIGHT BREAST: There is a stable asymmetry in the subareolar region, anterior depth. No suspicious mas ses, calcifications or areas of architectural distortion are seen. LEFT BREAST: No suspicious masses, calcifications or areas of architectural distortion are seen. IMPRESSION: 1. No imaging evidence of malignancy. ASSESSMENT: BI-RADS 2. Benign findings. RECOMMENDATION: Routine annual screening mammogram. The facility will notify the patient of the results via mail. Patient information was entered into a reminder system with a target due date for the next mammogram. A reminder letter will be generated by the facility. Electronically signed by: Mellissa Macias MD (11/21/2021 1:57 PM) [id number]
== END ==
LOC: MAMMO 11:15
PROVIDERS: ATTEND Internal Medicine Rheumatology
DX: Z12.31 Encounter for screening mammogram for malignant neoplasm of breast (principal); N64.89 Other specified disorders of breast
CPT/HCPCS: 77067